=== PATIENT | female | born 1935 | race Two or more races ===

== ENCOUNTER 2024-09-24 19:42 | Emergency (ER) | payer OTHER, MEDICAID ==
[~2024-09-24] VITALS: Ht 160 cm; Wt 65.8 kg
[~2024-09-24 19:42] MED LIST: PROP60TA6 PO
[2024-09-24] MEDS ORDERED: hydrALAZINE HCL IV 20 MG VIAL ONE (23:00)
[2024-09-24] MEDS: hydrALAZINE HCL IV 20 MG VIAL IV ONE (23:05)
[2024-09-24 23:17] LABS: BASOPHILS # (AUTO) 0.1 K/uL (0.0-0.2); BASOPHILS % (AUTO) 0.4 % (0.0-2.0); EOSINOPHILS # (AUTO) 0.3 K/uL (0.0-0.7); EOSINOPHILS % (AUTO) 2.9 % (0.0-6.0); HEMATOCRIT 39 % (33-45); HEMOGLOBIN 12.8 g/dL (11.5-14.8); LYMPHOCYTES # (AUTO) 2.5 K/uL (0.8-4.8); LYMPHOCYTES % (AUTO) 22.2 % (20.0-44.0); MEAN CORPUSCULAR HEMOGLOBIN 28 PG (26.0-33.0); MEAN CORPUSCULAR HGB CONC 33 g/dl (31.0-36.0); MEAN CORPUSCULAR VOLUME 84 fL (82-100); MONOCYTES % (AUTO) 8.6 % (2.0-12.0); NEUTROPHILS # (AUTO) 7.6 K/uL (1.8-8.9); NEUTROPHILS % (AUTO) 65.9 % (43.0-81.0); PLATELET COUNT (AUTO) 281 K/uL (150-450); RED BLOOD CELL COUNT(AUTO) 4.66 MIL/uL (4.0-5.2); RED CELL DISTRIBUTION WIDTH 14.1 % (11.5-15.0); WHITE BLOOD COUNT (AUTO) 11.5 K/uL (4.3-11.0)
[2024-09-24 23:29] LABS: CALCIUM, SERUM 9.3 mg/dL (8.5-10.1); CREATININE 0.8 mg/dL (0.6-1.3)
[2024-09-25] MEDS ORDERED: HYDR-4075 PO (00:06)
[2024-09-25 00:22] VITALS: BP 183/55; TEMP 98.1; O2SAT 99
== END 2024-09-25 00:23 | disposition home or self-care (01) ==
LOC: ER 20:20
DX: I10 Essential (primary) hypertension (principal); R42 Dizziness and giddiness; Z79.899 Other long term (current) drug therapy; Z88.1 Allergy status to other antibiotic agents; Z88.2 Allergy status to sulfonamides
CPT/HCPCS: 99285; 96374; 70450; 93005; 85025; 80048; 36415; 84484; J0360